=== PATIENT | female | born 1990 | race Two or more races ===

== ENCOUNTER 2025-03-13 15:47 | Emergency (ER) | payer OTHER ==
[~2025-03-13] VITALS: Ht 160 cm; Wt 63.5 kg
[2025-03-13 17:46] LABS: BASO % 0.3 % (0.1-1.2); EOS # 0.05 (0.04-0.54); EOS % 0.6 % (0.7-7.0); LYMPH # 2.24 (1.18-3.74); LYMPH % 25.8 % (19.3-53.1); MEAN PLATELET VOLUME 10.90 fl (9.4-12.4); MONO # 0.61 (0.24-0.82); MONO % 7.0 % (4.7-12.5); NEUT # 5.72 (1.56-6.13); NEUT % 66.1 % (34.0-71.1); RED CELL DISTRIBUTION WIDTH 12.4 % (11.6-14.4)
[2025-03-13 18:22] LABS: BUN CREA RATIO 11.0 (7.0-25.0); CREATININE SERUM 0.87 mg/dL (0.55-1.02); GFR 73.26; GLUCOSE FASTING 119.0 mg/dL (65-100); OSMOLALITY SERUM 283.0 MOSM/KG (275-295)
[2025-03-13 18:34] LABS: HCG QUANTITATIVE 35973.0 mUI/mL (1-3)
[2025-03-13 20:52] LABS: URINE APPEARANCE Clear; URINE BILIRRUBIN Negative (NEGATIVE); URINE BLOOD Negative; URINE COLOR Yellow; URINE GLUCOSE Negative (NEGATIVE); URINE KETONE 15 (NEGATIVE); URINE LEUKOCYTE Negative; URINE NITRATE Negative; URINE PROTEIN Negative (NEGATIVE); URINE UROBILINOGEN 0.2 E.U./dl
[2025-03-13 20:56] LABS: URINE BACTERIA 117.6 uL (0.0-1933); URINE EPITHELIAL CELLS 5.8 uL (0.0-38.8); URINE RBC 3.8 uL (0.0-20.8); URINE WBC 4.9 uL (0.0-23.2)
[2025-03-13 21:03] LABS: URINE CAST 0.00 uL (0.0-1.40)
== END 2025-03-13 22:56 | disposition home or self-care (01) ==
LOC: ER 15:47
PROVIDERS: Emergency Medicine
DX: O03.9 Complete or unspecified spontaneous abortion without complication (principal); R10.2 Pelvic and perineal pain; Z88.1 Allergy status to other antibiotic agents

== ENCOUNTER 2025-03-23 09:00 | Day surgery (SDC) | payer OTHER ==
[2025-03-21 13:15] LABS: URINE APPEARANCE Clear; URINE BILIRRUBIN Negative (NEGATIVE); URINE BLOOD Negative; URINE COLOR Yellow; URINE GLUCOSE Negative (NEGATIVE); URINE KETONE Trace (NEGATIVE); URINE LEUKOCYTE Negative; URINE NITRATE Negative; URINE PROTEIN Negative (NEGATIVE); URINE UROBILINOGEN 0.2 E.U./dl
[2025-03-21 13:16] LABS: BASO % 0.3 % (0.1-1.2); EOS # 0.03 (0.04-0.54); EOS % 0.3 % (0.7-7.0); LYMPH # 2.48 (1.18-3.74); LYMPH % 25.6 % (19.3-53.1); MEAN PLATELET VOLUME 11.10 fl (9.4-12.4); MONO # 0.72 (0.24-0.82); MONO % 7.4 % (4.7-12.5); NEUT # 6.40 (1.56-6.13); NEUT % 66.1 % (34.0-71.1); RED CELL DISTRIBUTION WIDTH 12.7 % (11.6-14.4)
[2025-03-21 13:19] LABS: URINE BACTERIA 3191.8 uL (0.0-1933); URINE EPITHELIAL CELLS 56.2 uL (0.0-38.8); URINE RBC 27.2 uL (0.0-20.8); URINE WBC 10.7 uL (0.0-23.2)
[2025-03-21 13:23] LABS: URINE CAST 0.14 uL (0.0-1.40)
[2025-03-21 13:37] LABS: INR 0.97
[2025-03-23] MEDS ORDERED: CLINDAMYCIN PHOSPHATE 150 MG/ML (300mg) ONE (10:33)
[2025-03-23] MEDS ORDERED: CLINDAMYCIN PHOSPHATE 150 MG/ML (600mg) ONE (10:33)
[2025-03-23] MEDS ORDERED: POVIDONE-IODINE 118 ML BOTT TOP ONE (14:25)
[2025-03-23] MEDS ORDERED: OXYTOCIN 10 UNITS/ML VIAL ONE (14:49)
== END 2025-03-23 20:00 | disposition home or self-care (01) ==
LOC: CIR.AMB 09:00
PROVIDERS: ATTEND Specialist
DX: O02.1 Missed abortion (principal)